=== PATIENT | male | born 1970 | race Caucasian/White ===

== ENCOUNTER 2019-10-01 08:13 | Emergency (ER) | payer OTHER, SELFPAY ==
--- NOTE | 2019-10-01 08:20 | ED.GENADULT ---
HPI - General Adult General Chief complaint: Anxiety Stated complaint: anxiety/not sleeping Time Seen by Provider: 10/01/19 08:45 Source: patient Mode of arrival: ambulatory Limitations: no limitations History of Present Illness HPI narrative: 49-year-old male patient presents to the [facility] with complaints of anxiety and panic attacks for the past 2 days. Patient states he has had issues with sleeping. Patient states that he has had issues with anxiety attacks before in the past but typically is able to manage them on his own. Patient states he has never been on medications for them in the past. Patient denies any chest pain or shortness of breath but states he just feels a sense of doom and gets very anxious and feels like he cannot sit still. Patient states he has been up almost all night pacing his house. Patient states he does have an appointment with his primary doctor tomorrow over a video conference but states he feels like he needs something before then. Patient denies any fevers or cough or any flulike illnesses. Related Data Allergies Allergy/AdvReac Type Severity Reaction Status Date / Time codeine Allergy Unknown Vomiting Verified 10/01/19 08:33 latex Allergy Unknown Rash Verified 10/01/19 08:33 Penicillins Allergy Unknown Rash Verified 10/01/19 08:33 Review of Systems Review of Systems: Narrative: CONSTITUTIONAL: Denies fever, chills, or sweats. EYES: Denies visual changes, redness, or discharge. ENT: Denies rhinorrhea, congestion, sore throat, or otalgia. CARDIOVASCULAR: Denies chest pain, palpitations, or edema. RESPIRATORY: Denies cough or dyspnea. GASTROINTESTINAL: Denies abdominal pain, nausea, vomiting, or diarrhea. GENITOURINARY: Denies dysuria or hematuria. SKIN: Denies rash or itching. MUSCULOSKELETAL: Denies back pain, joint pain, or myalgia. NEUROLOGIC: Denies headache, numbness, or weakness. PSYCHIATRIC: Positive anxiety denies depression. [facility] Past Medical History Medical History (Updated 10/01/19 @ 08:59 by COLETTE Be) Asthma exacerbation Hypercholesterolemia Pleurisy Surgical History Surgical History (Updated 10/01/19 @ 08:59 by COLETTE Be) H/O knee surgery Right side History of testicular surgery Right side Comments At the time of my signature I agree with nursing past medical history, surgical, social, and family history. There is no relevant family history pertinent to the presenting complaint. Exam Narrative: Exam Narrative: GENERAL: Well-appearing, well-nourished, and in no acute distress. HEAD: Normocephalic, atraumatic. No tenderness noted to frontal maxillary sinuses on palpation EYES: PERRLA and EOMI. ENT: Nares clear, no rhinorrhea or epistaxis. Mucous membranes moist. NECK: Supple. No lymphadenopathy CHEST: Clear to auscultation. No respiratory distress. Patient able talk in clear complete sentences. No tripoding noted. HEART: Regular rate and rhythm. No murmur heard. Normal peripheral pulses. ABDOMEN: Soft, nontender, nondistended, normal active bowel sounds. EXTREMITIES: Normal range of motion. No edema. SKIN: Warm, dry, no rash. NEURO: No focal deficits. Alert and oriented x3. Course Vital Signs Vital signs: Vital Signs Temperature 36.6 C 10/01/19 08:22 Pulse Rate 78 10/01/19 08:22 Respiratory Rate 24 H 10/01/19 08:22 Blood Pressure 129/83 10/01/19 08:22 Pulse Oximetry 98 10/01/19 08:22 Temperature 36.6 C 10/01/19 08:22 Pulse Rate 78 10/01/19 08:22 Respiratory Rate 24 H 10/01/19 08:22 Blood Pressure 129/83 10/01/19 08:22 Pulse Oximetry 98 10/01/19 08:22 Vital signs reviewed. Medical Decision Making Differential Diagnosis Differential Diagnosis: Differential diagnosis: Anxiety, panic attacks, STEMI/ACS, AAA, PE, spontaneous pneumothorax, cardiac tamponade, esophageal rupture, pneumonia, GERD, muscle-skeletal pain or trauma, endocarditis, cocaine-related ischemia, pericarditis, URI, bronchitis.
[2019-10-01 08:22] VITALS: BP 129/83; PULSE 78; RESP 24; TEMP 36.6; O2SAT 98
--- NOTE | 2019-10-01 08:34 | ECG_ITS ---
Measurements Intervals [place] Rate: 71 P: 40 WA: 170 QRS: 21 QRSD: 98 T: 43 QT: 390 QTc: 424 Interpretive Statements SINUS RHYTHM BASELINE ARTIFACT- I, III, V1 NORMAL ECG Electronically Signed On 10-01-2019 10:16:30 CDT by Asaf Araya D.O.
== END 2019-10-01 08:58 | disposition home or self-care (01) ==
PROVIDERS: Emergency Provider Nurse Practitioner Family; PCP Internal Medicine
DX: F41.9 Anxiety disorder, unspecified (principal); J45.909 Unspecified asthma, uncomplicated
CPT/HCPCS: 93005; 99213; G0463